=== PATIENT | female | born 1965 | race Caucasian/White ===

== ENCOUNTER → 2019-07-08 | Day surgery (SDC) | payer OTHER ==
--- NOTE | 2019-07-09 12:53 | PATH ---
Surgical Pathology Report Patient Name: KT CARBALLO [facility]. Rec. #: [id number] /Age/Gender: 1965 (Age: 54) / F Account: [id number] Location: [facility] Taken: 07/08/2019 Received: 07/08/2019 Reported: 07/09/2019 Physicians: Robby Chandler M.D. Specimen(s) Received LEFT BREAST CORE BIOPSY Clinical History Nonpalpable lesion Ultrasound findings: Probably benign Final Diagnosis BREAST, LEFT, 2:30, ULTRASOUND GUIDED CORE BIOPSY: FIBROADENOMA. Electronically Signed Isabel Torres M.D. Gross Description Received in formalin labeled "left 2:30," are 3 perez-yellow, cylindrical portions of fibroadipose tissue averaging 0.9 cm in length and 0.1 cm diameter. The specimens are submitted in toto in one cassette. Time to formalin fixation: Less than one minute Total formalin fixation time: Approximately 6 hours. /07/08/2019 saudi/07/08/2019
== END | disposition home or self-care (01) ==
LOC: JMAMMO-SUR 11:17
PROVIDERS: ATTEND Family Medicine Geriatric Medicine
PROC: 0H9U3ZX Drainage of Left Breast, Percutaneous Approach, Diagnostic (ICD-10-PCS; principal; 2019-07-08)
DX: D24.2 Benign neoplasm of left breast (principal)
CPT/HCPCS: 19083; 77065-TC; 87899; 88305-TC; A4648